=== PATIENT | male | born 1975 | race Caucasian/White ===

== ENCOUNTER → 2017-01-18 | Outpatient (CLI) | payer BC, OTHER ==
[~2017-01-18] VITALS: Ht 170.2 cm; Wt 84.8 kg
[~2017-01-18] MED LIST: NS 1,000 ML IV SCH; PRIL20CA9 PO; PROPOFOL 200 MG/20 ML VIAL As Ordered ONE
--- NOTE | 2017-01-18 08:17 | ROOR ---
Patient Name: Laureano Davis Procedure Date: 01/18/2017 7:56 AM Date of : 1975 Age: 41 Room: [facility] Gender: Male Note Status: Finalized Procedure: Colonoscopy to Cecum + Biopsy Polypectomy Indications: Follow-up of diverticulitis, Change in bowel habits Providers: Dandy Richey MD Referring MD: TAHMINA BREWER JR, MD Requesting Provider: Medicines: Monitored Anesthesia Care Complications: No immediate complications. Procedure: Pre-Anesthesia Assessment: - The heart rate, respiratory rate, oxygen saturations, blood pressure, adequacy of pulmonary ventilation, and response to care were monitored throughout the procedure. The Colonoscope was introduced through the anus and advanced to the cecum, identified by appendiceal orifice and ileocecal valve. The colonoscopy was performed without difficulty. The patient tolerated the procedure well. The quality of the bowel preparation was excellent. Findings: The perianal and digital rectal examinations were normal. Non-bleeding internal hemorrhoids were found during retroflexion. The hemorrhoids were small and Grade I (internal hemorrhoids that do not prolapse). Multiple small and large-mouthed diverticula were found in the recto-sigmoid colon, sigmoid colon and descending colon. A diminutive polyp was found in the cecum. The polyp was sessile. The polyp was removed with a cold biopsy forceps. Resection and retrieval were complete. The exam was otherwise without abnormality on direct and retroflexion views. Impression: - Non-bleeding internal hemorrhoids. - Diverticulosis in the recto-sigmoid colon, in the sigmoid colon and in the descending colon. - One diminutive polyp in the cecum, removed with a cold biopsy forceps. Resected and retrieved. - The examination was otherwise normal on direct and retroflexion views. - The exam was otherwise normal to the cecum. Recommendation: - Patient has a contact number available for emergencies. The signs and symptoms of potential delayed complications were discussed with the patient. Return to normal activities tomorrow. Written discharge instructions were provided to the patient. - High fiber diet. - Discharge patient to home. - Continue present medications. - Await pathology results. - Telephone GI clinic for pathology results in 1 week. - Return to referring physician. - Repeat colonoscopy at age 52 for screening purposes. - The findings and recommendations were discussed with the patient's family. - Check Portal Online for Path Results.([email or web address]) Dandy Richey MD Dandy Richey MD 01/18/2017 8:17:37 AM This report has been signed electronically. Number of Addenda: 0 Note Initiated On: 01/18/2017 7:56 AM Estimated Blood Loss: Estimated blood loss: none.
[2017-01-18 08:44] VITALS: BP 99/58
== END | disposition home or self-care (01) ==
LOC: M OPP 07:22
PROVIDERS: ATTEND Internal Medicine Gastroenterology
DX: R19.4 Change in bowel habit (principal); K57.32 Diverticulitis of large intestine without perforation or abscess without bleeding; D12.0 Benign neoplasm of cecum; K57.30 Diverticulosis of large intestine without perforation or abscess without bleeding; K64.0 First degree hemorrhoids; R12 Heartburn; Z79.899 Other long term (current) drug therapy

== ENCOUNTER 2018-09-24 16:39 | Emergency (ER) | payer BC, OTHER ==
[~2018-09-24] VITALS: Ht 170.2 cm; Wt 86.4 kg
[~2018-09-24 16:39] MED LIST changes: -NS 1,000 ML IV SCH; -PROPOFOL 200 MG/20 ML VIAL As Ordered ONE
[2018-09-24 16:40] VITALS: BP 152/89
[2018-09-24] MEDS ORDERED: BENA25CA4 PO (16:45)
[2018-09-24] MEDS ORDERED: COLD1MIS PO (16:45)
[2018-09-24] MEDS ORDERED: AUGM875T28 PO (17:55)
[2018-09-24 17:59] LABS: INFLUENZA A AMPLIFICATION NEGATIVE (NEGATIVE); INFLUENZA B AMPLIFICATION NEGATIVE (NEGATIVE)
[2018-09-24] MEDS ORDERED: AUGMENTIN 875 MG TAB PO ONE (18:00)
== END 2018-09-24 19:14 | disposition home or self-care (01) ==
LOC: M ED 19:09
DX: H66.92 Otitis media, unspecified, left ear (principal); J01.90 Acute sinusitis, unspecified; K21.9 Gastro-esophageal reflux disease without esophagitis; Z79.899 Other long term (current) drug therapy

== ENCOUNTER → 2022-01-15 | Outpatient (CLI) | payer BC, OTHER ==
[~2022-01-15] MED LIST changes: +AUGM875T28 PO; +BENA25CA4 PO; +COLD1MIS PO
== END ==
LOC: M WUC 13:58
PROVIDERS: ATTEND Physician Assistant Medical
DX: M25.551 Pain in right hip (principal); M16.11 Unilateral primary osteoarthritis, right hip; M51.37 Other intervertebral disc degeneration, lumbosacral region

== ENCOUNTER → 2022-08-23 | Outpatient (CLI) | payer BC, OTHER ==
[~2022-08-23] MED LIST changes: +CYCL-707; +GABA-282; +HYDR-3713 PO; +IBUP-1022 PO; +MELO15TA28; +METH-1165 PO; +PRED20TA PO; +PRIL20TA2 PO
== END ==
LOC: M LABSMTC 11:34
PROVIDERS: ATTEND Anesthesiology
DX: Z01.812 Encounter for preprocedural laboratory examination (principal); Z11.52 Encounter for screening for COVID-19

== ENCOUNTER 2022-08-26 06:33 | Day surgery (SDC) | payer BC, OTHER ==
[~2022-08-26] VITALS: Ht 170.2 cm; Wt 92.1 kg
[~2022-08-26 06:33] MED LIST changes: +NS 1,000 ML IV ONE
[2022-08-26] MEDS ORDERED: LIDOCAINE 2% 100MG/5ML SDV (FOR ANES.) As Ordered ONE (07:32)
[2022-08-26] MEDS ORDERED: fentaNYL 100 MCG/2 ML INJECTION As Ordered ONE (07:32)
[2022-08-26] MEDS ORDERED: propofoL 500 MG/50 ML VIAL As Ordered ONE (07:32)
[2022-08-26 08:15] VITALS: BP 123/79
== END 2022-08-26 08:30 | disposition home or self-care (01) ==
LOC: M OPP 06:33
PROVIDERS: ATTEND Internal Medicine Gastroenterology
DX: Z12.11 Encounter for screening for malignant neoplasm of colon (principal); Z86.010 Personal history of colon polyps; K64.0 First degree hemorrhoids; K57.30 Diverticulosis of large intestine without perforation or abscess without bleeding; K44.9 Diaphragmatic hernia without obstruction or gangrene; K29.60 Other gastritis without bleeding; Z79.899 Other long term (current) drug therapy
CPT/HCPCS: 43239; 45378; 88305; J3010

== ENCOUNTER → 2023-06-02 | Outpatient (CLI) | payer BC, OTHER ==
[~2023-06-02] MED LIST changes: -NS 1,000 ML IV ONE
== END ==
LOC: M WUC 11:56
PROVIDERS: ATTEND Nurse Practitioner Family
DX: R91.8 Other nonspecific abnormal finding of lung field (principal)

== ENCOUNTER 2024-11-19 04:40 | Emergency (ER) | payer BC, OTHER ==
[~2024-11-19] VITALS: Ht 167.6 cm; Wt 92.9 kg
[~2024-11-19 04:40] MED LIST changes: +GABA-1172; -GABA-282
[2024-11-19] MEDS ORDERED: MUCI120T PO (04:47)
[2024-11-19 05:17] LABS: KETONE, URINE AUTO RFX NEGATIVE (NEGATIVE); LEUKOCYTE ESTERASE UR AUTO RFX NEGATIVE (NEGATIVE); MUCUS, URINE RFX SMALL (NEGATIVE); NITRITE, URINE AUTO RFX NEGATIVE (NEGATIVE); RBC, URINE AUTO RFX 2 /HPF (0-3); SQUAM EPITHELIAL CELL UR AURFX 0 /HPF (0-6); WBC, URINE AUTO RFX 2 /HPF (0-3)
[2024-11-19 08:12] LABS: BASO % 0.4 % (0.0-1.0); EOS # 0.2 10^3/uL (0.0-0.5); EOS % 3.1 % (0.0-3.0); HEMATOCRIT 45.1 % (42.0-52.0); HEMOGLOBIN 15.4 g/dl (13.5-17.5); LYMPH # 1.6 10^3/uL (1.5-5.0); LYMPH % 28.4 % (24.0-44.0); MEAN CORPUSCULAR HEMOGLOBIN 29.9 pg (27.0-33.0); MEAN CORPUSCULAR HGB CONC 34.1 g/dl (32.0-36.5); MEAN CORPUSCULAR VOLUME 87.6 fl (80.0-96.0); MONO # 0.6 10^3/uL (0.0-0.8); MONO % 10.1 % (2.0-8.0); NEUTROPHILS # 3.2 10^3/uL (1.5-8.5); NEUTROPHILS % 57.8 % (36.0-66.0); PLATELET COUNT, AUTOMATED 191 10^3/uL (150-450); RED BLOOD COUNT 5.15 10^6/uL (4.30-6.10); WHITE BLOOD COUNT 5.5 10^3/uL (4.0-10.0)
[2024-11-19 08:40] LABS: ALBUMIN 3.7 G/DL (3.2-5.2); ALKALINE PHOSPHATASE 81 U/L (40-129); ALT/SGPT 88 U/L (7.0-40); AST/SGOT 35 U/L (<34); BILIRUBIN,DIRECT 0.1 MG/DL (<0.4); BILIRUBIN,TOTAL 0.4 MG/DL (0.3-1.2); BLOOD UREA NITROGEN 14 MG/DL (9-23); CALCIUM LEVEL 8.5 MG/DL (8.5-10.1); CARBON DIOXIDE LEVEL 27 MMOL/L (20-31); CHLORIDE LEVEL 107 MMOL/L (98-107); CREATININE FOR GFR 0.79 MG/DL (0.70-1.30); GLOMERULAR FILTRATION RATE > 60.0 (>60); GLUCOSE, FASTING 93 MG/DL (60-100); POTASSIUM SERUM 4.4 MMOL/L (3.5-5.1); SODIUM LEVEL 142 MMOL/L (136-145); TOTAL PROTEIN 6.8 G/DL (5.7-8.2)
[2024-11-19] MEDS ORDERED: COLA100C5 PO (09:05)
[2024-11-19] MEDS ORDERED: MIRA3350 PO (09:05)
[2024-11-19 09:23] VITALS: BP 120/73; TEMP 97.1; O2SAT 97
[2024-11-19] MEDS: KETOROLAC 30 MG/ML 1ML VIAL IV ONE (09:29)
== END 2024-11-19 09:44 | disposition home or self-care (01) ==
LOC: M ED 04:40
DX: K76.0 Fatty (change of) liver, not elsewhere classified (principal); M54.50 Low back pain, unspecified; K59.00 Constipation, unspecified; R74.01 Elevation of levels of liver transaminase levels; K21.9 Gastro-esophageal reflux disease without esophagitis; Z87.442 Personal history of urinary calculi; Z79.899 Other long term (current) drug therapy
CPT/HCPCS: 74176; 80048; 80076; 81001; 85025; 96374; 99284; J1885

== ENCOUNTER → 2024-12-06 | Outpatient (REF) | payer OTHER ==
[~2024-12-06] MED LIST changes: +COLA100C5 PO; +MIRA3350 PO; +MUCI120T PO
== END ==
LOC: M LAB REF 17:09
PROVIDERS: ATTEND Internal Medicine
DX: R94.5 Abnormal results of liver function studies (principal); K76.0 Fatty (change of) liver, not elsewhere classified